=== PATIENT | male | born 1960 | race Caucasian/White ===

== ENCOUNTER 2018-06-24 07:00 | Emergency (ER) | payer OTHER ==
[2018-06-24 07:16] VITALS: BP 141/87
--- NOTE | 2018-06-24 07:43 | UC ---
Abdominal Pain Male HPI - HPI Summary HPI Summary: 3 DAYS OF SEVERE LOWER ABDOMINAL CRAMPY PAIN. COMES IN WAVES. NO FEVER OR NAUSEA. NO RECENT TRAVEL OR UNUSUAL FOODS. IS PASSING GAS. HAS HAD SMALL STOOLS AND WONDERS IF HE MIGHT BE CONSTIPATED. - History of Current Complaint Chief Complaint: UCAbdominalPain Stated Complaint: ABD PAIN Time Seen by Provider: 06/24/18 07:19 Hx Obtained From: Patient Onset/Duration: Sudden Onset, Lasting Days, Still Present Timing: Intermittent Episodes Lasting: - SECONDS Severity Initially: Moderate Severity Currently: Severe Pain Intensity: 9 Pain Scale Used: 0-10 Numeric Location: Other - LOWER ABDOMINAL Radiates: No Character: Cramping, Sharp Aggravating Factor(s): Nothing Alleviating Factor(s): Spontaneous Resolution Associated Signs And Symptoms: Positive: Constipation, Decreased Appetite. Negative: Fever, Back Pain, Blood in Stool, Urinary Symptoms, Nausea, Vomiting, Diarrhea - Allergies/Home Medications Allergies/Adverse Reactions: Allergies Allergy/AdvReac Type Severity Reaction Status Date / Time clarithromycin [From Biaxin] Allergy Intermediate GI Upset Verified 06/24/18 07: 50 Home Medications: Home Medications Oxycodone HCl 5 mg PO DAILY WITH MEAL 06/24/18 [History Confirmed 06/24/18] PMH/Surg Hx/FS Hx/Imm Hx Previously Healthy: Yes - Surgical History Surgical History: Yes Surgery Procedure, Year, and Place: left knee meniscectomy;. bilateral shoulder replacements 2006. recovered alcoh. - Family History Known Family History: Positive: None Negative: Hypertension - Social History Alcohol Use: None Substance Use Type: None Smoking Status (MU): Heavy Every Day Tobacco Smoker Amount Used/How Often: 1 PPD Have You Smoked in the Last Year: Yes - Immunization History Most Recent Influenza Vaccination: NOT IN 5 YEARS Most Recent Tetanus Shot: UTD Review of Systems Constitutional: Negative Skin: Negative Respiratory: Negative Cardiovascular: Negative Gastrointestinal: Abdominal Pain All Other Systems Reviewed And Are Negative: Yes Physical Exam Triage Information Reviewed: Yes Appearance: Well-Nourished, Pain Distress - SEVERE PAIN IN WAVES - DOUBLED OVER Vital Signs: Initial Vital Signs Temp 97.9 F 06/24/18 07:10 Pulse 80 06/24/18 07:10 Resp 20 06/24/18 07:10 BP 141/87 06/24/18 07:10 Pulse Ox 98 06/24/18 07:10 Vital Signs Reviewed: Yes Eyes: Positive: Conjunctiva Clear ENT: Positive: Hearing grossly normal Neck: Positive: Supple Respiratory Exam: Normal Cardiovascular Exam: Normal Abdomen Description: Positive: Nontender, Soft. Negative: CVA Tenderness (R), CVA Tenderness (L), Distended, Guarding Bowel Sounds: Positive: Present Musculoskeletal: Positive: No Edema Neurological: Positive: Alert Psychological: Positive: Age Appropriate Behavior Skin: Negative: rashes Abd Pain Male Course/Dx - Course Course Of Treatment: PT DOUBLED OVER HOLDING HIS LOWER ABDOMEN AND GROANING IN PAIN. WILL SEND DIRECTLY TO [facility] [place] ED. PT OFFERED TRANSPORT TO THE ED BY AMBULANCE BUT DECLINES. ADVISED THAT BY NOT TRAVELING IN A MONITORED SETTING HE COULD BE RISKING WORSENING OF HIS CONDITION THAT COULD POSE A THREAT TO HIS LIFE, HEALTH AND MEDICAL SAFETY. HE VERBALIZES UNDERSTANDING AND CONTINUES TO DECLINE AMBULANCE TRANSFER. - Differential Dx/Clinical Impression Provider Diagnoses: ACUTE ABDOMINAL PAIN Discharge - Sign-Out/Discharge Documenting (check all that apply): Patient Departure All imaging exams completed and their final reports reviewed: No Studies - Discharge Plan Condition: Stable Disposition: TRANS [facility] Patient Education Materials: Abdominal Pain (ED) Referrals: Jg Ragland MD [Primary Care Provider] - If Needed Additional Instructions: GO DIRECTLY TO THE [facility] [place] ED FROM HERE FOR FURTHER EVALUATION. YOU HAVE DECLINED TRANSFER TO THE ED BY AMBULANCE. BE ADVISED THAT BY NOT TRAVELING IN A MONITORED SETTING YOU COULD BE RISKING WORSENING OF YOUR CONDITION THAT COULD POSE A THREAT TO YOUR LIFE, HEALTH AND MEDICAL SAFETY. - Billing Disposition and Condition Condition: STABLE Disposition: Trans Higher Lvl of Care Fac
== END 2018-06-24 07:30 | disposition short-term general hospital (02) ==
LOC: UCEAST 07:00
DX: R10.30 Lower abdominal pain, unspecified (principal); Z96.612 Presence of left artificial shoulder joint; Z96.611 Presence of right artificial shoulder joint; Z88.1 Allergy status to other antibiotic agents; F17.200 Nicotine dependence, unspecified, uncomplicated
CPT/HCPCS: 99212; G0463

== ENCOUNTER 2018-06-24 07:44 | Emergency (ER) | payer OTHER ==
[2018-06-24] MEDS ORDERED: Dicyclomine CAP* 10 MG PO ONE (08:02)
--- NOTE | 2018-06-24 08:02 | ED ---
Abdominal Pain/Male - HPI Summary HPI Summary: The pt is a 58 y/o male presenting to [facility] c/o bilateral lower abd pain since 3 days ago. The intermittent pain described as cramping is rated 9/10 in severity at its worst. The episodes last for 5-10 seconds. He notes decreased appetite but denies N/V/D, constipation and dysuria. The pain is aggravated by bending and alleviated by burping, flatulence and bowel movement. - History of Current Complaint Chief Complaint: EDAbdPain Stated Complaint: LOWER ABD PAIN Time Seen by Provider: 06/24/18 07:55 Hx Obtained From: Patient Onset/Duration: Lasting Days - 3 days, Still Present Timing: Intermittent, Lasting Seconds - 5-10 seconds Severity Currently: Mild Pain Intensity: 9 Pain Scale Used: 0-10 Numeric Location: Diffuse - Lower abdomen Character: Cramping Alleviating Factor(s): Position, Other: - Burping, flatulence and bowel movement - Allergies/Home Medications Allergies/Adverse Reactions: Allergies Allergy/AdvReac Type Severity Reaction Status Date / Time clarithromycin [From Biaxin] Allergy Intermediate GI Upset Verified 06/24/18 07: 55 PMH/Surg Hx/FS Hx/Imm Hx Previously Healthy: No Endocrine/Hematology History: Denies: Hx Diabetes, Hx Thyroid Disease Cardiovascular History: Denies: Hx Hypertension, Hx Pacemaker/ICD Respiratory History: Denies: Hx Asthma, Hx Chronic Obstructive Pulmonary Disease (COPD) GI History: Denies: Hx Ulcer Musculoskeletal History: Reports: Hx Arthritis, Hx Back Problems - low back pain Comment Only: Other Musculoskeletal History - lumbar disk displacement Sensory History: Denies: Hx Hearing Aid Psychiatric History: Denies: Hx Panic Disorder - Cancer History Cancer Type, Location and Year: None reported - Surgical History Surgery Procedure, Year, and Place: left knee meniscectomy;. bilateral shoulder replacements 2007. recovered alcoh. Infectious Disease History: No Infectious Disease History: Denies: Hx Hepatitis, Hx Human Immunodeficiency Virus (HIV), History Other Infectious Disease, Traveled Outside the [place] in Last 30 Days - Family History Known Family History: Positive: Other - Osteoarthritis Negative: Cardiac Disease, Hypertension, Diabetes - Social History Occupation: Employed Full-time Lives: With Family Alcohol Use: None Substance Use Type: Reports: None Smoking Status (MU): Heavy Every Day Tobacco Smoker Amount Used/How Often: 1 PPD Have You Smoked in the Last Year: Yes Review of Systems Negative: Fever Gastrointestinal: Negative - Constipation , Other - Decreased appetite Positive: Abdominal Pain. Negative: Vomiting, Diarrhea, Nausea Negative: dysuria All Other Systems Reviewed And Are Negative: Yes Physical Exam - Summary Physical Exam Summary: Appearance: The patient is well-nourished in no acute distress and in no acute pain. Skin: The skin is warm and dry and skin color reflects adequate perfusion. HEENT: The head is normocephalic and atraumatic. The pupils are equal and reactive. The conjunctivae are clear and without drainage. Nares are patent and without drainage. Mouth reveals moist mucous membranes and the throat is without erythema and exudate. The external ears are intact. The ear canals are patent and without drainage. The tympanic membranes are intact. Neck: The neck is supple with full range of motion and non-tender. There are no carotid bruits. There is no neck vein distension. Respiratory: Chest is non-tender. Lungs are clear to auscultation and breath sounds are symmetrical and equal. Cardiovascular: Heart is regular rate and rhythm. There is no murmur or rub auscultated. There is no peripheral edema and pulses are symmetrical and equal. Abdomen: The abdomen is soft and non-tender. There are normal bowel sounds heard in all four quadrants and there is no organomegaly palpated. Musculoskeletal: There is no back tenderness noted. Extremities are non-tender with full range of motion. There is good capillary refill. There is no peripheral edema or calf tenderness elicited. Neurological: Patient is alert and oriented to person, place and time. The patient has symmetrical motor strength in all four extremities. Cranial nerves are grossly intact. Deep tendon reflexes are symmetrical and equal in all four extremities. Psychiatric: The patient has an appropriate affect and does not exhibit any anxiety or depression. Triage Information Reviewed: Yes Vital Signs On Initial Exam: Initial Vitals Temp Pulse Resp BP Pulse Ox 98.4 F 80 20 130/84 97 06/24/18 07:47 06/24/18 07:47 06/24/18 07:47 06/24/18 07:47 06/24/18 07:47 Vital Signs Reviewed: Yes Diagnostics - Vital Signs Vital Signs Temp Pulse Resp BP Pulse Ox 06/24/18 07:47 98.4 F 80 20 130/84 97 - Laboratory Result Diagrams: 06/24/18 08:15 06/24/18 08:15 Lab Statement: Any lab studies that have been ordered have been reviewed, and results considered in the medical decision making process. - CT Abd/Pel CT CT Interpretation Completed By: Radiologist - IMPRESSION: 1. CT findings are consistent with sigmoid diverticulitis without evidence of macro perforation or drainable abscess. 2. 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 In the absence of symptoms these can be followed up in 6-12 months to document stability. 3. Additional chronic and degenerative changes described in the body the report. The ED physician reviewed this radiology report. Re-Evaluation - Re-Evaluation First Eval Re-Evaluation Time: 09:39 Change: Improved - The pt feels better and is ready to go home. Abdominal Pain Fem Course/Dx - Course Course Of Treatment: Mr Batista presented to the emergency department complaining of a few days of crampy lower abdominal pain which has worsened today. In between quite painful cramping episodes which are short in duration, he essentially has no pain and is noted to have no tenderness. He was nontoxic in appearance his vitals were stable. Labs and a noncontrasted CT abdomen and pelvis were obtained to rule out diverticulitis and he was indeed found to have diverticulitis. He got a lot of relief from Bentyl here in the emergency department and I will treat him with Bentyl Cipro and Flagyl as an outpatient. - Diagnoses Provider Diagnoses: Diverticulitis Discharge - Sign-Out/Discharge Documenting (check all that apply): Patient Departure - DC - Discharge Plan Condition: Stable Disposition: HOME Prescriptions: Ciprofloxacin TAB* [Cipro Tab*] 500 mg PO BID #20 tab Dicyclomine CAP* [Bentyl CAP*] 10 mg PO TID PRN #20 cap PRN Reason: Pain metroNIDAZOLE [Flagyl 500 MG TAB] 500 mg PO TID #30 tab Patient Education Materials: Diverticulitis (ED) Referrals: Jg Ragland MD [Primary Care Provider] - 2 Days Additional Instructions: Follow up with your PCP in 2 days Return to ED for any new or worsening symptoms - Billing Disposition and Condition Condition: STABLE Disposition: Home - Attestation Statements Document Initiated by Scribe: Yes Documenting Scribe: Natasha Lou Provider For Whom Scribe is Documenting (Include Credential): Dr. Niels Nichole MD Scribe Attestation: I, Natasha Lou , scribed for Dr. Niels Nichole MD on 06/24/18 at 1108. Scribe Documentation Reviewed: Yes Provider Attestation: The documentation as recorded by the scribe, Natasha Lou accurately reflects the service I personally performed and the decisions made by me, Dr. Niels Nichole MD
[2018-06-24 08:24] LABS: ABS Basophils 0.1 10^3/ul (0-0.2); ABS Eosinophils 0.3 10^3/ul (0-0.6); ABS Monocytes 0.9 10^3/ul (0-0.8); ABS Neutrophils 7.3 10^3/ul (1.5-7.7); ABS Nucleated RBC 0 10^3/ul; Hematocrit 41 % (42-52); Lymphocyte % 18.7 % (25-47); Mean Corpuscular HGB Conc 34 g/dl (31-36); Mean Corpuscular Hemoglobin 32 pg (27-31); Mean Corpuscular Volume 92 fL (80-94); Nucleated Red Blood Cells % 0.1; Platelet Count 224 10^3/ul (150-450); Red Blood Count 4.43 10^6/ul (4.00-5.40); Red Cell Distribution Width 14 % (10.5-15); White Blood Count 10.6 10^3/ul (3.5-10.8)
[2018-06-24 08:39] LABS: EGFR Non-African American 89.3 (>60)
--- NOTE | 2018-06-24 09:02 | RAD ---
CLINICAL HISTORY: Left lower quadrant pain COMPARISON: None TECHNIQUE: Noncontrast CT examination of the abdomen and pelvis from the lung bases through the initial tuberosities. FINDINGS: VISUALIZED LUNG BASES: The visualized lung bases are grossly clear. There is no pleural effusion. ABDOMEN AND PELVIS: Evaluation of the solid organs and vasculature is limited without intravenous contrast. The liver, spleen, pancreas and adrenal glands are grossly normal in appearance. The gallbladder is normal. The kidneys are normal in appearance without focal mass, calcification or signs of hydronephrosis. Evaluation of the gastrointestinal tract is limited in the absence of oral contrast. The small and large bowel are not distended.The normal appendix is identified in the right lower quadrant measuring just under 5 mm in diameter (axial image 93 and coronal image 69). There are scattered distal colonic diverticula becoming more concentrated the rectosigmoid colon. There is a mild amount of pericolonic infiltration of the mesenteric fat. There is likely wall thickening of the sigmoid colon. There is no drainable fluid collection. There is no gross retroperitoneal or mesenteric lymphadenopathy. The pelvic viscera is normal in appearance. There are bilateral fat-containing inguinal hernias. The mildly calcified abdominal aorta and iliac arteries are normal in course and diameter. There is mild aneurysmal dilatation of the right common iliac artery measuring up to 1.9 cm in diameter and the left common iliac artery up to 1.7 cm in diameter. Degenerative changes include multilevel loss of intervertebral disc height involving the lower thoracic and lumbar spine. There is vacuum disc phenomenon at multiple intervertebral disc spaces at the lumbar spine. IMPRESSION: 1. CT findings are consistent with sigmoid diverticulitis without evidence of macro perforation or drainable abscess. 2. 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 In the absence of symptoms these can be followed up in 6-12 months to document stability. 3. Additional chronic and degenerative changes described in the body the report.
[2018-06-24 09:29] LABS: Urine Appearance Clear; Urine Blood NEG (Negative); Urine Color Yellow; Urine Ketones NEG (Negative); Urine Protein NEG (Negative); Urine Specific Gravity 1.015 (1.010-1.030)
[2018-06-24 09:30] LABS: Urine Urobilinogen Positive (Negative)
[2018-06-24 10:05] VITALS: BP 128/90
== END 2018-06-24 10:05 | disposition home or self-care (01) ==
LOC: ED 07:44
DX: K57.32 Diverticulitis of large intestine without perforation or abscess without bleeding (principal); Z88.1 Allergy status to other antibiotic agents; Z96.612 Presence of left artificial shoulder joint; Z96.611 Presence of right artificial shoulder joint; F17.210 Nicotine dependence, cigarettes, uncomplicated
CPT/HCPCS: 36415; 74176; 80053; 81003; 83605; 85025; 86140; 99282; A9270-GY

== ENCOUNTER 2024-06-05 06:04 | Observation (INO) ==
[~2024-06-05 06:04] MED LIST: NS 0.45% 1000 ml BAG 1,000 ML IV SCH; Naloxone 0.4 mg VIAL 0.4 mg/ml 1 ml VIAL IV PRN; Ondansetron 4 mg VIAL 2 MG/ML 2 ml VIAL IV PRN; fentaNYL 100 mcg/2 ml 50 MCG/ML VIAL IV PRN
[2024-06-05] MEDS ORDERED: ceFAZolin 2 GM PREMIX 2 GM/50 ML BAG ONE (06:29)
[2024-06-05] MEDS ORDERED: Tranexamic Acid 1 GM/100ML BAG 2,000 MG/200 ML BAG IV ONE (06:29)
[2024-06-05] MEDS ORDERED: fentaNYL 100 mcg/2 ml 50 MCG/ML VIAL ONE (06:45)
[2024-06-05] MEDS ORDERED: Midazolam 5 mg/5 ml VIAL 1 mg/ml 5 ml VIAL (5 mg) ONE (06:45)
[2024-06-05] MEDS ORDERED: ROPIVACAINE 5 MG/ML 30 ML BTL (0.5%) ONE ×2 (06:45→07:47)
[2024-06-05] MEDS: Lactated Ringers 1000 ml BAG 1,000 ML IV SCH ×2 (06:52→12:13)
[2024-06-05] MEDS: Buffered Lidocaine 1% SYRIN 1 ml INTRADERM ONE (06:53)
[2024-06-05 06:58] LABS: Rapid COVID-19 Molecular Undetected (Undetected)
[2024-06-05] MEDS ORDERED: Glycopyrrolate IV 0.2 MG/ML 1 ML VIAL ONE (07:44)
[2024-06-05] MEDS ORDERED: KETAMINE HCL 10 MG/ML 20 ml VIAL (200 MG) ONE (07:45)
[2024-06-05] MEDS ORDERED: Phenylephrine IV 10 MG/ML 1 ml VIAL ONE (08:06)
[2024-06-05] MEDS ORDERED: Propofol 10 MG/ML 20 ML BTL ONE ×2 (08:42→09:36)
[2024-06-05] MEDS ORDERED: Lactulose 30 ml UDC PO PRN (10:23)
[2024-06-05] MEDS ORDERED: Magnesium Hydroxide LIQ 30 ML UDC PO PRN (10:23)
[2024-06-05] MEDS ORDERED: Calcium Carb (TUMS) 500 mg CHEW TAB PO PRN (10:23)
[2024-06-05] MEDS ORDERED: Ondansetron ODT 4 mg TAB 4 MG TAB PO PRN (10:23)
[2024-06-05] MEDS ORDERED: Ondansetron 4 mg VIAL 2 MG/ML 2 ml VIAL IV PRN (10:23)
[2024-06-05] MEDS ORDERED: Albuterol HFA INHALER 8 gm MDI INH PRN (10:41)
[2024-06-05] MEDS: Morphine 2 MG/ML SYRINGE IV PRN (12:11)
[2024-06-05] MEDS: Nicotine PATCH 21 MG/24 HR PATCH TRANSDERM SCH (12:17)
[2024-06-05] MEDS: Acetaminophen IV 1 GM/100ML 1,000 MG/100 ML BAG IV ONE (14:51)
[2024-06-05] MEDS: ceFAZolin 2 GM PREMIX 2 GM/50 ML BAG IV SCH (16:05)
[2024-06-05] MEDS: Magnesium Hydroxide LIQ 30 ML UDC PO SCH (21:31)
[2024-06-06 05:16] LABS: Hematocrit 34.5 % (38-53); Hemoglobin 12.1 g/dL (13.2-16.3); Mean Platelet Volume 9.5 fL (7.5-11.2); Platelet Count 179 10^3/uL (150-450)
[2024-06-06 05:48] LABS: Calcium 8.2 mg/dL (8.6-10.3); Creatinine, Serum 0.93 mg/dL (0.67-1.17); Potassium 4.3 mmol/L (3.5-5.0); eGFR CKD-EPI 92.8 (>60)
[2024-06-06] MEDS: Vitamin THERAPEUTIC TAB PO SCH (07:36)
[2024-06-06 10:14] VITALS: BP 142/87
== END 2024-06-06 11:40 | disposition home or self-care (01) ==
LOC: OR 06:04 → SSU 06:04
PROVIDERS: ADMIT Orthopaedic Surgery Adult Reconstructive Orthopaedic Surgery; ATTEND Orthopaedic Surgery Adult Reconstructive Orthopaedic Surgery